=== PATIENT | male | born 1995 | race Caucasian/White ===

== ENCOUNTER 2021-03-21 14:58 | Emergency (ER) | payer OTHER ==
[2021-03-21] MEDS ORDERED: ZOFRAN ODT 4 MG4 MG SL (18:37)
[2021-03-21] MEDS ORDERED: PERCOCET 5/325 T1 EA PO (18:37)
[2021-03-21] MEDS ORDERED: IBUPROFEN600 MG PO (18:37)
== END 2021-03-21 19:10 | disposition home or self-care (01) ==
LOC: ER1 14:58
DX: S82.001A Unspecified fracture of right patella, initial encounter for closed fracture (principal); F17.200 Nicotine dependence, unspecified, uncomplicated; V49.9XXA Car occupant (driver) (passenger) injured in unspecified traffic accident, initial encounter; Y92.410 Unspecified street and highway as the place of occurrence of the external cause
CPT/HCPCS: 71111; 73562; 96374; 99283; J1885